=== PATIENT | female | born 1960 | race Caucasian/White ===

== ENCOUNTER 2017-05-10 15:04 | Emergency (ER) | payer SELFPAY ==
[~2017-05-10] VITALS: Ht 165.1 cm; Wt 110.0 kg
[2017-05-10 15:25] VITALS: Ht 165.1 cm; Wt 110.0 kg
== END 2017-05-10 22:18 | disposition left against medical advice (07) ==
LOC: E/R 15:04
DX: Z53.21 Procedure and treatment not carried out due to patient leaving prior to being seen by health care provider (principal)

== ENCOUNTER 2017-12-26 03:27 | Observation (INO) | END 2017-12-27 14:28 | disposition home or self-care (01) ==